=== PATIENT | male | born 1950 | race Caucasian/White ===

== ENCOUNTER → 2017-07-01 | Outpatient (CLI) | payer MEDICARE, OTHER ==
[~2017-07-01] MED LIST: ATORVASTATIN CA20 MG PO; CLONIDINE HCL0.1 MG PO; DIATRIZOATE MEGL/DIATRIZOA SOD 30 ML BTL PO ONE; FUROSEMIDE40 MG PO; GLIMEPIRIDE2 MG PO; HYDROCHLOROTHIA25 MG PO; INVOKANA PO; IOPAMIDOL 370 MG/ML 200 ML INFUS..BTL INJ ONE; ISOSORBIDE MONO30 MG PO; LEVOTHYROXINE75 MCG PO; METFORMIN HCL500 M2 PO; METOPROLOL TART50 MG PO; PLAVIX75 MG PO; RAMIPRIL5 MG PO; SODIUM CHLORIDE 0.9% 50ML 50 ML ONE
[2017-07-01 13:07] LABS: BLOOD UREA NITROGEN 16 mg/dL (7-26); BUN/CREATININE RATIO 21 (6-25); CREATININE, SERUM 0.77 mg/dL (0.72-1.25); EST GLOMERULAR FILTRATION RATE > 60 ML/MIN (60-)
--- NOTE | 2017-07-01 14:53 | Diagnostic Imaging Report ---
PROCEDURE:CT PELVIS WITH CONTRAST COMPARISON:None. INDICATIONS:RIGHT LOWER QUADRANT PAIN TECHNIQUE:Spiral CT images of the pelvis were performed from the iliac crests to the lesser trochanters after the intravenous administration of 100 cc of Isovue-370 and the oral administration of dilute Gastrografin. Coronal and sagittal reformatted images were obtained. FINDINGS: PELVIC ORGANS:Bladder and prostate are unremarkable. No focal lesions. No wall thickening. GI TRACT:Visualized. Bowel shows no dilation or obstruction. Appendix is well identified and normal in caliber. No abnormal enhancement. No inflammatory changes surrounding the visualized colon. Sigmoid diverticulosis, without diverticulitis. PERITONEUM/RETROPERITONEUM: No free air or free fluid. VESSELS: Atherosclerotic calcification of the distal aorta and iliac vessels. LYMPH NODES: No distal retroperitoneal, pelvic, or inguinal adenopathy. BONES:No aggressive lytic lesion. Mild degenerative changes in the right sacroiliac joint and cystic changes in the acetabula bilaterally. SOFT TISSUES.:Tiny fat-containing umbilical hernia. Soft tissues are otherwise unremarkable. CONCLUSION: 1. No acute abdominopelvic abnormalities. Appendix is well-visualized and normal in caliber. 2. Sigmoid diverticulosis without diverticulitis. Doug Dudley M.D. Dictated by: Doug Dudley M.D. on 07/01/2017 at 14:53 Electronically approved by: Doug Dudley M.D. on 07/01/2017 at 14:53
== END ==
LOC: CT 12:18
PROVIDERS: ATTEND Surgery
DX: R10.31 Right lower quadrant pain (principal)
CPT/HCPCS: 36415; 72193; 82565; 84520; Q9967